=== PATIENT | female | born 1940 | race African-American/Black ===

== ENCOUNTER 2016-11-10 08:29 | Outpatient (CLI) | payer MEDICARE ==
--- NOTE | 2016-11-10 10:02 | Fluoroscopy Report ---
FLUOROSCOPY BARIUM SWALLOW/ESOPHAGRAM INDICATION: Dysphagia. COMPARISON: None similar. FINDINGS: Barium swallow attempted, though in part limited due to patient's left-sided weakness/inability to stand or position well on the table. Patient swallowed oral contrast without any difficulty. No aspiration, penetration or abnormal contrast pooling noted. Normal esophageal course and caliber. No definite hiatal hernia. Thoracic spondylosis. Edentulous jaw. CONCLUSION: Limited barium swallow exam without gross abnormality, as described. Thank you for the opportunity to participate in this patient's care.
== END 2016-11-10 08:30 | disposition home or self-care (01) ==
LOC: FLUORO 08:29 → EDBD 08:29 → FLUORO 08:30
PROVIDERS: ATTEND Otolaryngology
DX: R13.10 Dysphagia, unspecified (principal); M47.894 Other spondylosis, thoracic region; I10 Essential (primary) hypertension
CPT/HCPCS: 74220

== ENCOUNTER 2017-08-25 10:26 | Day surgery (SDC) | payer MEDICARE ==
[2017-08-25] MEDS ORDERED: HEPARIN/NS 5000 UNIT/500ML(CATH LAB) 1,000 ML IR ONE (12:08)
[2017-08-25] MEDS ORDERED: HEPARIN 10,000 UNITS/10 ML ONE (12:08)
[2017-08-25] MEDS ORDERED: XYLOCAINE 2% INFILTRATI ONE (12:09)
[2017-08-25] MEDS ORDERED: VERSED ONE (12:09)
[2017-08-25] MEDS ORDERED: ANCEF/STERILE WATER 2 GM/20 ML 2 GM/20 ML SYRINGE IV ONE (12:11)
[2017-08-25] MEDS ORDERED: NACL 0.9% 500 ML 500 ML ONE (12:13)
[2017-08-25] MEDS: SUBLIMAZE ONE ×2 (12:45→13:03)
--- NOTE | 2017-08-25 13:24 | Short Stay Summary ---
Short Stay Documentation Date of service: 08/25/17 Narrative H&P: 76-year-old female with end-stage renal disease with left upper extremity brachiocephalic AV fistula and prolonged bleeding times who presents for fistulogram. - History Principal diagnosis: AV fistula malfunction Past Medical History: dialysis Past Surgical History: Other (left brachiocephalic AV fistula) Social history: no significant social history - Allergies and Medications Current Medications: Allergies No Known Allergies Allergy (Unverified 11/04/14 11:38) Home Medications Medication Instructions Recorded Confirmed Last Taken Type Atorvastatin Calcium [Lipitor] 20 mg PO QHS 11/04/14 11/04/14 11/02/14 21:00 History Lisinopril [Zestril TAB] 20 mg PO QDAY 11/04/14 11/04/14 11/02/14 08:00 History Pantoprazole [Protonix TAB] 40 mg PO QDAY 11/04/14 11/04/14 11/02/14 08:00 History - Physical exam General appearance: no acute distress Lungs: Normal air movement Extremities: normal temperature, normal color, abnormal (thrill in left upper extremity AV fistula) - Brief post op/procedure progress note Date of procedure: 08/25/17 Pre-op diagnosis: left AV fistula malfunction Post-op diagnosis: same Procedure: Left AV fistulagram Anesthesia: local (with conscious sedation) Surgeon: VINOD ESPINOZA Estimated blood loss: minimal Condition: stable - Hospital course Hospital course: Tolerated procedure well. no issues. ready for discharge. - Disposition Condition at discharge: Stable Disposition: [id number] TO HOME OR SELFCARE - Discharge Diagnoses (1) Dialysis AV fistula malfunction Status: Acute (2) ESRD (end stage renal disease) on dialysis Status: Acute Short Stay Discharge Plan Activity: advance as tolerated Weight Bearing Status: Weight Bear as Tolerated Diet: renal Wound: keep clean and dry, other (If stitch does not fall out, then have dialysis center remove stitch in 1 week ; if they are not able, then contact [facility] to have us remove stitch.) Follow up with: ALONSO HANSEN, PAC [Primary Care Provider] - 7 Days
--- NOTE | 2017-08-25 13:29 | Operative Report ---
Operative Report Operative Report: EXAM: 1. Ultrasound guided access of the left arm AV brachiocephalic fistula 2. Placement of a 7 [place] sheath towards the venous outflow 3. Fistulogram 4. Angioplasty of the cephalic arch with an 8 mm x 2 cm cutting angioplasty balloon 5. Angioplasty of the cephalic arch with a 9 mm x 40 mm angioplasty balloon 6. Angioplasty of the mid cephalic vein with a 9 mm x 40 mm angioplasty balloon DATE: 08/25/17 LEAD JAVASCRIPT DEVELOPER: VINOD ESPINOZA MD INDICATION: Left upper extremity AV fistula with prolonged bleeding MEDICATIONS: Please see nursing report for full details. DEVICES: 8 mm cutting angioplasty balloon 9 mm angioplasty PROCEDURE: The risks, benefits, and alternatives of the procedure were discussed and written informed consent was obtained. The patient was transported in stable condition to the angiography suite. The patient's left arm AV brachial artery cephalic vein fistula was assessed by ultrasound and was patent. The patient was prepped and draped in a sterile fashion. Under ultrasound guidance, the left arm AV fistula was accessed with a 21-gauge micropuncture needle. The area was anesthetized prior to access. 0.018 inch wire was advanced through the micropuncture needle into the fistula and then the needle was exchanged for a 5 [facility]ian transitional dilator. The inner dilator and wire were removed and a 0.035 inch wire was advanced through the venous outflow. The transitional dilator was exchanged for a 6 [facility] Lucian short sheath. Fistulogram was performed of the venous outflow and central veins. Sheath was upsized to 7 [place]ian short sheath. 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 Subclavian vein, left innominate artery, and SVC were patent. Collaterals are noted from the mid cephalic vein, which are draining into other veins, but these are not be causing increased bleeding time. Angioplasty of the cephalic arch insertion was performed with an 8 mm x 2 cm cutting angioplasty balloon. 9 mm x 40 mm angioplasty balloon was used to perform angioplasty of the entirety of the cephalic arch. Angioplasty was then performed at the midportion of the cephalic vein after the aneurysmal portion of the cephalic vein. Digital subtraction angiography was performed. Demonstrating resolution of all the previously noted stenoses. Reflux into the arterial anastomosis was performed. Reflux arteriography demonstrated that there was a [id number] anastomosis of the brachial artery to cephalic vein with a significant amount of flow passing retrograde into the forearm cephalic vein and into well-developed collaterals which then drained up the arm. There are also multiple tortuous bend is within the cephalic vein peripheral to the aneurysmal segment (where she is being accessed). Since the patient's problem is prolonged bleeding, and the multiple tortuous bend within the cephalic vein are peripheral to the insertion sites, these are not responsible for the prolonged bleeding. The numerous collaterals from the retrograde forearm flow into the forearm cephalic vein may decrease clearance rates, but that is not the patient's problem and therefore these were not embolized. The wire was removed and the site was closed with a 3-0 Vicryl suture. The sheath was then removed. Hemostasis was achieved with slight manual compression. The patient was transported from the angiography suite to the floor in stable condition. IMPRESSION: Successful fistulogram and angioplasty as descibed above of the peripheral dialysis segment.
[2017-08-25 15:49] VITALS: BP 137/49
== END 2017-08-25 15:30 | disposition home or self-care (01) ==
LOC: CATHLABREC 10:26 → EDBD 10:26 → CATHLABREC 15:30
PROVIDERS: ATTEND Radiology Diagnostic Radiology
DX: T82.898A Other specified complication of vascular prosthetic devices, implants and grafts, initial encounter (principal); N18.6 End stage renal disease; Y83.2 Surgical operation with anastomosis, bypass or graft as the cause of abnormal reaction of the patient, or of later complication, without mention of misadventure at the time of the procedure
CPT/HCPCS: 36415; 36902; 84132; 99156; 99157; C1725; C1751; C1769; C1894; J0690; J1644; J2250; J3010; J7040; Q9967